=== PATIENT | female | born 2000 | race Caucasian/White ===

== ENCOUNTER 2022-06-22 13:51 | Emergency (ER) | payer SELFPAY ==
[2022-06-22] MEDS ORDERED: Acetaminophen 500 MG TAB ONE (14:58)
[2022-06-22] MEDS ORDERED: Boostrix 0.5 ML (Tdap) VIAL (>/=7 yrs of age) ONE (15:11)
== END 2022-06-22 15:09 | disposition home or self-care (01) ==
LOC: ERS 13:51
DX: S81.012A Laceration without foreign body, left knee, initial encounter (principal); S70.02XA Contusion of left hip, initial encounter; S60.511A Abrasion of right hand, initial encounter; Z23 Encounter for immunization; E03.9 Hypothyroidism, unspecified; F17.210 Nicotine dependence, cigarettes, uncomplicated; W22.8XXA Striking against or struck by other objects, initial encounter
CPT/HCPCS: 12001; 90471; 90715